=== PATIENT | female | born 1965 | race Caucasian/White ===

== ENCOUNTER 2017-09-12 11:18 | Emergency (ER) | payer OTHER ==
[~2017-09-12] VITALS: Ht 165.1 cm; Wt 90.0 kg
[2017-09-12 11:23] VITALS: BP 139/95; PULSE 84; RESP 16; TEMP 98.3; O2SAT 99
[2017-09-12] MEDS ORDERED: SYNT25TA PO (11:34)
[2017-09-12] MEDS ORDERED: ESTR1 PO (11:34)
--- NOTE | 2017-09-12 12:37 | RADRPT ---
EXAM DATE/TIME: 09/12/2017 12:08 [place] COMPARISON: No previous studies available for comparison. INDICATIONS : Left foot pain due to continous walking during working. MEDICAL HISTORY : None. SURGICAL HISTORY : None. ENCOUNTER: Initial ACUITY: 3 days PAIN SCORE: 7/10 LOCATION: Left anterior foot FINDINGS: Two view examination of the left foot demonstrates no soft tissue swelling, dislocation, or fracture. The calcaneus is intact. Bony mineralization is normal. CONCLUSION: Negative for fracture Donnie York MD FACR on September 12, 2017 at 12:35 Board Certified Radiologist. This report was verified electronically.
[2017-09-12] MEDS ORDERED: PRED20 PO (13:06)
--- NOTE | 2017-09-12 13:07 | PD ---
HPI Chief Complaint: Injury Time Seen by Provider: 12:09 Travel History International Travel<30 days: No Contact w/Intl Traveler<30days: No Traveled to known affect area: No History of Present Illness HPI This is a 52-year-old female here with left foot pain and swelling 3 days. 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 She reports she has had similar episodes in the past with tendinitis and feet. She denies fever or chills. No history of gout. Denies wound or wounds to the feet. Pain is worse with weightbearing and slightly relieved with rest. Severity is moderate. PFSH Past Medical History Medical History: Denies Significant Hx Diminished Hearing: No Tetanus Vaccination: < 5 Years Influenza Vaccination: Yes ?: Not Past Surgical History Abdominal Surgery: Yes (jamison bypass) Cholecystectomy: Yes Hysterectomy: Yes Tonsillectomy: Yes Other Surgery: Yes (breast augmentation, breast reduction) Social History Alcohol Use: Yes (occ beer or wine) Tobacco Use: No (quit 20 years ago) Substance Use: No Allergies-Medications (Allergen,Severity, Reaction): Coded Allergies: almond (Verified Allergy, Unknown, 09/12/17) butorphanol (Verified Allergy, Unknown, 09/12/17) Reported Meds & Prescriptions Reported Meds & Active Scripts Active Reported Estrace (Estradiol) 1 Mg Tab 1 Mg PO DAILY Synthroid (Levothyroxine Sodium) 25 Mcg Tab 25 Mcg PO DAILY Review of Systems Except as stated in HPI: all other systems reviewed are Neg General / Constitutional: No: Fever Eyes: No: Visual changes HENT: No: Headaches Cardiovascular: No: Chest Pain or Discomfort Respiratory: No: Shortness of Breath Gastrointestinal: No: Abdominal Pain Genitourinary: No: Dysuria Physical Exam Narrative GENERAL: Alert and well-appearing 52-year-old female SKIN: Warm and dry. HEAD: Normocephalic. EYES: No injection or drainage. NECK: Supple CARDIOVASCULAR: Regular rate and rhythm RESPIRATORY: Breath sounds equal bilaterally. No accessory muscle use. MUSCULOSKELETAL: No cyanosis. Left foot: Notable swelling, mild warmth and erythema, mild tenderness. No deformity. No open wounds. 2+ dorsal pedis pulse. Freely moves her toes. Brisk cap refill Data Data Last Documented VS Vital Signs Date Time Temp Pulse Resp B/P (MAP) Pulse Ox O2 Delivery O2 Flow Rate FiO2 09/12/17 11:23 98.3 84 16 139/95 (110) 99 Orders Orders Foot, Limited (2vws) (09/12/17 ) MDM Medical Decision Making Medical Screen Exam Complete: Yes Emergency Medical Condition: Yes Differential Diagnosis Midfoot sprain, fracture, tendinitis, gout, cellulitis Narrative Course This is a 52-year-old female here with left foot pain and swelling 3 days. 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 She has had episodes of tendinitis in the past which appeared similar. She denies fever or chills. We discussed the possibility that this is gout. Patient is adamant that this is gout this is similar to her prior tendinitis. She reports she has had favorable treatment in the past with steroids. X-ray was negative for fracture. Patient will be treated for tendinitis versus gout. She was instructed to return if she developed new or worsening symptoms. Diagnosis Primary Impression: Foot pain Qualified Codes: M79.672 - Pain in left foot Referrals: Primary Care Physician Additional Instructions: Ice and elevate the foot as tolerable. Steroids as directed. Follow up with her primary doctor or return if he have new or worsening symptoms Scripts Prednisone (Prednisone) 20 Mg Tab 40 MG PO DAILY, #10 TAB 0 Refills Take 40 mg (2 tablets) daily for 5 days Prov: Jesusita He 09/12/17 Disposition: 01 DISCHARGE HOME Condition: Stable Jesusita He Sep 12, 2017 13:07
[2017-09-12] MEDS ORDERED: KETOROLAC TROMETHAMINE 60 MG/2 ML (IM) VIAL IM ONE (13:15)
== END 2017-09-12 13:25 | disposition home or self-care (01) ==
LOC: PHEFT 11:18
DX: M79.672 Pain in left foot (principal)
CPT/HCPCS: 73620; 96372; 99283; J1885